=== PATIENT | male | born 1980 ===

== ENCOUNTER 2020-05-01 11:40 | Emergency (ER) | payer SELFPAY ==
[2020-05-01 11:46] VITALS: BP 127/69
--- NOTE | 2020-05-01 12:46 | NUR ---
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 DC ORDERS RECEIVED, HOWEVER PT LEFT ED PRIOR TO RECEIVING DC EDUCATION. PT AMBULATORY OUT OF DEPARTMENT WITH STEADY GAIT.
== END 2020-05-01 12:46 | disposition home or self-care (01) ==
LOC: ED 12:40
DX: T14.8XXA Other injury of unspecified body region, initial encounter (principal); M79.671 Pain in right foot; M79.662 Pain in left lower leg; Z72.9 Problem related to lifestyle, unspecified; X58.XXXA Exposure to other specified factors, initial encounter; Y93.89 Activity, other specified; Y92.89 Other specified places as the place of occurrence of the external cause; Y99.8 Other external cause status
CPT/HCPCS: 99283